=== PATIENT | female | born 1970 | race Caucasian/White ===

== ENCOUNTER 2024-06-28 10:29 | Outpatient (CLI) | payer BC | END 2024-06-28 10:30 | disposition home or self-care (01) | LOC: CSHDTY/OP 10:29 | PROVIDERS: ATTEND Nurse Practitioner Family | DX: Z71.3 Dietary counseling and surveillance (principal); E78.2 Mixed hyperlipidemia; E66.9 Obesity, unspecified; R73.03 Prediabetes | CPT/HCPCS: 97802 ==